=== PATIENT | female | born 1940 ===

== ENCOUNTER → 2018-03-29 | Outpatient (CLI) | payer OTHER, MEDICARE | LOC: BHFA 11:00 | PROVIDERS: ATTEND Internal Medicine Cardiovascular Disease | DX: Z01.810 Encounter for preprocedural cardiovascular examination (principal); I48.91 Unspecified atrial fibrillation; I11.9 Hypertensive heart disease without heart failure; J44.9 Chronic obstructive pulmonary disease, unspecified; I43 Cardiomyopathy in diseases classified elsewhere ==

== ENCOUNTER → 2018-04-09 | Outpatient (CLI) | payer OTHER, MEDICARE | LOC: BHFA 13:00 | PROVIDERS: ATTEND Internal Medicine Cardiovascular Disease | DX: Z01.810 Encounter for preprocedural cardiovascular examination (principal); I48.91 Unspecified atrial fibrillation; I11.9 Hypertensive heart disease without heart failure; I43 Cardiomyopathy in diseases classified elsewhere | CPT/HCPCS: 78452; 93017; A9500; J2785 ==